=== PATIENT | male | born 1935 | race Caucasian/White ===

== ENCOUNTER 2017-11-02 12:22 | Inpatient (IN) | payer MEDICARE, BC ==
[~2017-11-02] VITALS: Ht 188 cm; Wt 86.2 kg
[2017-11-02 15:28] VITALS: BP 163/99
[2017-11-02] MEDS ORDERED: ONDANSETRON 2MG/ML, 2ML IVPush PRN (17:00)
[2017-11-02] MEDS ORDERED: GUAIFENESIN/DM 200-20MG, 10ML UDC PO PRN (17:00)
[2017-11-02] MEDS ORDERED: DOCUSATE 100 MG CAPSULE PO PRN (17:00)
[2017-11-02] MEDS ORDERED: ACETAMINOPHEN 325 MG TABLET PO PRN (17:00)
[2017-11-02] MEDS ORDERED: PLEASE ENTER ALLERGIES MC SCH (17:00)
[2017-11-02] MEDS ORDERED: ALBU90AE INH (17:03)
[2017-11-02] MEDS ORDERED: FURO80TA3 PO (17:03)
[2017-11-02] MEDS ORDERED: POTA20TA14 PO (17:03)
[2017-11-02] MEDS ORDERED: AZEL137S4 NAS (17:03)
[2017-11-02] MEDS ORDERED: LORA10TA3 PO (17:03)
[2017-11-02] MEDS ORDERED: DIGO250T86 PO (17:03)
[2017-11-02] MEDS ORDERED: ESOM40CA PO (17:03)
[2017-11-02] MEDS ORDERED: FINA5TAB4 PO (17:03)
[2017-11-02] MEDS ORDERED: FLUT50DI NAS (17:03)
[2017-11-02] MEDS ORDERED: ASPI-650 PO (17:03)
[2017-11-02] MEDS ORDERED: GEMF600T3 PO (17:03)
[2017-11-02] MEDS ORDERED: LISI5TAB7 PO (17:03)
[2017-11-02] MEDS ORDERED: METO-93 PO (17:03)
[2017-11-02] MEDS ORDERED: CARV3.122 PO (17:03)
[2017-11-02] MEDS ORDERED: METO-95 PO (17:03)
[2017-11-02] MEDS ORDERED: MULT-717 PO (17:03)
[2017-11-02] MEDS ORDERED: CELE-47 PO (17:03)
[2017-11-02] MEDS ORDERED: METOPROLOL TARTRATE 25 MG TABLET PO SCH (18:00)
[2017-11-02 18:17] LABS: ANION GAP 9 mmol/L (5-15); CALCIUM 8.8 mg/dL (8.5-10.1); CHLORIDE 102 mmol/L (98-107)
[2017-11-02] MEDS: FUROSEMIDE 40 MG/4 ML IV SCH (18:19)
[2017-11-02] MEDS: CARVEDILOL 3.125 MG TABLET PO SCH (18:19)
[2017-11-02 18:21] LABS: TROPONIN I 0.078 ng/mL (0.000-0.045)
[2017-11-02 19:22] LABS: MD YES; MEAN CORPUSCULAR HEMOGLOBIN 29.6 pg (27.5-34.5); MEAN CORPUSCULAR HGB CONC 33.3 g/dL (33.2-36.2); MEAN CORPUSCULAR VOLUME 88.9 fL (81-97); MEAN PLATELET VOLUME 9.8 fL (7.4-10.4); PLATELET COUNT 239 x10^3/uL (130-400); RED BLOOD COUNT 4.82 x10^6/uL (4.38-5.82); RED CELL DISTRIBUTION WIDTH 17.7 % (9.4-14.8)
[2017-11-02 19:30] VITALS: BP_SYST 150; BP_SYST 152; BP_DIAS 101
[2017-11-02 19:50] LABS: LYMPH#(MANUAL) 0.69 x10^3/uL (1-3.4); LYMPHS% (MANUAL) 10 % (22-44); MONOS#(MANUAL) 0.41 x10^3/uL (0.3-2.7); MONOS% (MANUAL) 6 % (2-9); SEGS% (MANUAL) 84 % (42-75)
[2017-11-02 19:52] LABS: <PLATELET ESTIMATE> ADEQUATE; ANISOCYTOSIS 1+; LARGE PLATELETS 1+; POLYCHROMASIA 1+
[2017-11-02 20:52] VITALS: BP 145/87
[2017-11-02] MEDS: GEMFIBROZIL 600 MG TABLET PO SCH (20:53)
[2017-11-02] MEDS: POTASSIUM CHLORIDE 10 MEQ TABLET.ER PO SCH (20:53)
[2017-11-02] MEDS: ENOXAPARIN 40 MG/0.4 ML SQ SCH (20:56)
[2017-11-02] MEDS: FLUTICASONE NASAL SPRAY 16GM NAS SCH (21:50)
[2017-11-02 23:20] LABS: TROPONIN I 0.086 ng/mL (0.000-0.045)
[2017-11-03 00:33] VITALS: BP 133/85
[2017-11-03 05:30] LABS: BASOPHILS # (AUTO) 0.01 x10^3/uL (0-0.1); BASOPHILS % (AUTO) 0 % (0-1); EOSINOPHILS # (AUTO) 0.01 x10^3/uL (0-0.4); EOSINOPHILS % (AUTO) 0 % (1-7); LYMPHOCYTES # (AUTO) 0.62 x10^3/uL (1-3.4); LYMPHOCYTES % (AUTO) 8 % (22-44); MD NO; MEAN CORPUSCULAR HEMOGLOBIN 28.6 pg (27.5-34.5); MEAN CORPUSCULAR HGB CONC 32.2 g/dL (33.2-36.2); MEAN CORPUSCULAR VOLUME 88.6 fL (81-97); MEAN PLATELET VOLUME 9.2 fL (7.4-10.4); MONOCYTES # (AUTO) 0.78 x10^3/uL (0.2-0.8); MONOCYTES % (AUTO) 10 % (2-9); NEUTROPHILS % (AUTO) 81 % (42-75); PLATELET COUNT 217 x10^3/uL (130-400); RED BLOOD COUNT 4.65 x10^6/uL (4.38-5.82); RED CELL DISTRIBUTION WIDTH 17.4 % (9.4-14.8)
[2017-11-03 05:44] LABS: ANION GAP 9 mmol/L (5-15); CALCIUM 8.6 mg/dL (8.5-10.1); CHLORIDE 102 mmol/L (98-107)
[2017-11-03 05:59] LABS: CHOL/HDL RATIO 4.1; CHOLESTEROL, TOTAL 120 mg/dL (140-239); CREATININE 0.83 mg/dL (0.7-1.3); HDL CHOL % 24 % (26-37); HDL CHOLESTEROL (DIRECT) 29 mg/dL (40-60); LDL CHOLESTEROL,CALCULATED 59 mg/dL (54-169); TRIGLYCERIDES 162 mg/dL (50-200); VLDL CHOLESTEROL 32 mg/dL (0-25)
[2017-11-03] MEDS: ASPIRIN 81 MG TABLET EC PO SCH (06:25)
[2017-11-03] MEDS: CARVEDILOL 3.125 MG TABLET PO SCH (06:25)
[2017-11-03] MEDS ORDERED: POTASSIUM CHLORIDE 10 MEQ TABLET.ER PO SCH (08:00)
[2017-11-03] MEDS ORDERED: MAGNESIUM SULFATE PMX 4GM/100M 100 ML IV ONE (08:00)
[2017-11-03 08:23] LABS: TROPONIN I 0.079 ng/mL (0.000-0.045)
[2017-11-03] MEDS: POTASSIUM CHLORIDE 10 MEQ TABLET.ER PO SCH (10:14)
[2017-11-03] MEDS: POTASSIUM CHLORIDE 20 MEQ TAB.ER.PRT PO SCH ×3 (10:14→17:20)
[2017-11-03] MEDS: OXYcodone IR 5MG TABLET PO PRN (10:14)
[2017-11-03] MEDS: TAMSULOSIN 0.4 MG CAP.ER.24H PO SCH (10:14)
[2017-11-03] MEDS: LISINOPRIL 10 MG TABLET PO SCH (10:15)
[2017-11-03] MEDS: GEMFIBROZIL 600 MG TABLET PO SCH ×2 (10:15→21:05)
[2017-11-03] MEDS: FINASTERIDE 5 MG TABLET PO SCH (10:15)
[2017-11-03] MEDS: PANTOPROZOLE 40MG TABLET PO SCH (10:15)
[2017-11-03] MEDS: FUROSEMIDE 40 MG/4 ML IV SCH ×2 (10:16→17:20)
[2017-11-03] MEDS: LORATADINE 10 MG TABLET PO SCH (10:16)
[2017-11-03 10:31] VITALS: BP 158/83
[2017-11-03 14:58] VITALS: BP 127/84
[2017-11-03] MEDS: CARVEDILOL 6.25 MG TABLET PO SCH (17:20)
[2017-11-03 18:37] VITALS: BP 112/66
[2017-11-03] MEDS: ENOXAPARIN 40 MG/0.4 ML SQ SCH (21:06)
[2017-11-03] MEDS: FLUTICASONE NASAL SPRAY 16GM NAS SCH (21:06)
[2017-11-04 01:06] VITALS: BP 135/78
[2017-11-04 05:21] LABS: ALANINE AMINOTRANSFERASE 12 U/L (12-78); ANION GAP 8 mmol/L (5-15); CALCIUM 8.6 mg/dL (8.5-10.1); CHLORIDE 103 mmol/L (98-107); CREATININE 0.95 mg/dL (0.7-1.3)
[2017-11-04 05:23] LABS: ALKALINE PHOSPHATASE 77 U/L (45-117); BILIRUBIN,TOTAL 0.8 mg/dL (0.2-1.0); TOTAL PROTEIN 6.6 g/dL (6.4-8.2)
[2017-11-04] MEDS: CARVEDILOL 6.25 MG TABLET PO SCH ×2 (05:23→18:02)
[2017-11-04] MEDS: ASPIRIN 81 MG TABLET EC PO SCH (05:23)
[2017-11-04 06:55] VITALS: BP 128/79
[2017-11-04] MEDS: POTASSIUM CHLORIDE 10 MEQ TABLET.ER PO SCH (07:27)
[2017-11-04] MEDS: LORATADINE 10 MG TABLET PO SCH (07:27)
[2017-11-04] MEDS: LISINOPRIL 10 MG TABLET PO SCH (07:27)
[2017-11-04] MEDS: TAMSULOSIN 0.4 MG CAP.ER.24H PO SCH (07:27)
[2017-11-04] MEDS: PANTOPROZOLE 40MG TABLET PO SCH (07:27)
[2017-11-04] MEDS: GEMFIBROZIL 600 MG TABLET PO SCH ×2 (07:28→20:49)
[2017-11-04] MEDS: FINASTERIDE 5 MG TABLET PO SCH (07:28)
[2017-11-04] MEDS: FUROSEMIDE 40 MG/4 ML IV SCH (07:28)
[2017-11-04] MEDS: OXYcodone IR 5MG TABLET PO PRN (07:30)
[2017-11-04] MEDS ORDERED: CARV3.122 PO (11:57)
[2017-11-04] MEDS ORDERED: DIGO250T86 PO (12:03)
[2017-11-04 12:52] VITALS: BP 106/74
[2017-11-04 14:27] VITALS: BP 121/89
[2017-11-04 18:39] VITALS: BP 128/85
[2017-11-04] MEDS: FLUTICASONE NASAL SPRAY 16GM NAS SCH (20:49)
[2017-11-04] MEDS: ENOXAPARIN 40 MG/0.4 ML SQ SCH (20:50)
[2017-11-05 02:59] VITALS: BP 117/75
[2017-11-05 05:07] LABS: BASOPHILS # (AUTO) 0.02 x10^3/uL (0-0.1); BASOPHILS % (AUTO) 0 % (0-1); EOSINOPHILS # (AUTO) 0.03 x10^3/uL (0-0.4); EOSINOPHILS % (AUTO) 0 % (1-7); LYMPHOCYTES # (AUTO) 0.79 x10^3/uL (1-3.4); LYMPHOCYTES % (AUTO) 10 % (22-44); MD NO; MEAN CORPUSCULAR HEMOGLOBIN 28.9 pg (27.5-34.5); MEAN CORPUSCULAR VOLUME 90.2 fL (81-97); MEAN PLATELET VOLUME 9.5 fL (7.4-10.4); MONOCYTES # (AUTO) 0.93 x10^3/uL (0.2-0.8); MONOCYTES % (AUTO) 12 % (2-9); NEUTROPHILS % (AUTO) 78 % (42-75); PLATELET COUNT 226 x10^3/uL (130-400); RED BLOOD COUNT 4.72 x10^6/uL (4.38-5.82); RED CELL DISTRIBUTION WIDTH 18.2 % (9.4-14.8)
[2017-11-05 05:12] LABS: ALBUMIN 2.8 g/dL (3.4-5.0); ANION GAP 10 mmol/L (5-15); CALCIUM 8.8 mg/dL (8.5-10.1); CHLORIDE 102 mmol/L (98-107); CREATININE 1.03 mg/dL (0.7-1.3)
[2017-11-05] MEDS: CARVEDILOL 6.25 MG TABLET PO SCH (06:09)
[2017-11-05] MEDS: ASPIRIN 81 MG TABLET EC PO SCH (06:09)
[2017-11-05] MEDS: PANTOPROZOLE 40MG TABLET PO SCH (08:23)
[2017-11-05] MEDS: FINASTERIDE 5 MG TABLET PO SCH (09:00)
[2017-11-05] MEDS ORDERED: FUROSEMIDE 80 MG TABLET PO SCH (09:00)
[2017-11-05 09:09] VITALS: BP 101/65
[2017-11-05] MEDS: TAMSULOSIN 0.4 MG CAP.ER.24H PO SCH (09:59)
[2017-11-05] MEDS: LISINOPRIL 10 MG TABLET PO SCH (09:59)
[2017-11-05] MEDS: GEMFIBROZIL 600 MG TABLET PO SCH (09:59)
[2017-11-05] MEDS: POTASSIUM CHLORIDE 10 MEQ TABLET.ER PO SCH (09:59)
[2017-11-05] MEDS: LORATADINE 10 MG TABLET PO SCH (10:00)
== END 2017-11-05 15:08 | disposition home or self-care (01) | DRG 292 ==
LOC: 5SO 15:24
PROVIDERS: ADMIT Hospitalist; ATTEND Hospitalist
DX: I11.0 Hypertensive heart disease with heart failure (principal); D68.69 Other thrombophilia; I48.91 Unspecified atrial fibrillation; I50.23 Acute on chronic systolic (congestive) heart failure; E83.42 Hypomagnesemia; E78.5 Hyperlipidemia, unspecified; E87.6 Hypokalemia; I25.10 Atherosclerotic heart disease of native coronary artery without angina pectoris; N40.0 Benign prostatic hyperplasia without lower urinary tract symptoms; K21.9 Gastro-esophageal reflux disease without esophagitis; Z96.653 Presence of artificial knee joint, bilateral; M19.90 Unspecified osteoarthritis, unspecified site; R09.02 Hypoxemia; Z79.899 Other long term (current) drug therapy; Z79.82 Long term (current) use of aspirin; Z80.0 Family history of malignant neoplasm of digestive organs; Z85.72 Personal history of non-Hodgkin lymphomas; Z87.442 Personal history of urinary calculi; Z87.891 Personal history of nicotine dependence; Z92.21 Personal history of antineoplastic chemotherapy; Z92.3 Personal history of irradiation; Z88.0 Allergy status to penicillin
CPT/HCPCS: 36415; 80048; 80053; 80061; 80162; 82040; 83735; 84100; 84443; 84484; 85025; 93005; 93306; J1650; J1940; J3475

== ENCOUNTER 2018-10-19 15:45 | Inpatient (IN) | payer MEDICARE, BC ==
[~2018-10-19] VITALS: Ht 188 cm; Wt 94.6 kg
[~2018-10-19 15:45] MED LIST: ALBU90AE INH; ASPI-650 PO; AZEL137S4 NAS; CARV3.122 PO; CELE-47 PO; DIGO250T86 PO; ESOM40CA PO; FINA5TAB4 PO; FLUT50DI NAS; FURO80TA3 PO; GEMF600T8 PO; LISI5TAB7 PO; LORA-247 PO; METO-93 PO; METO-95 PO; MULT-717 PO; POTA20TA14 PO
[2018-10-19 19:08] VITALS: BP 159/84
[2018-10-19] MEDS ORDERED: ESOM40SU PO (21:34)
[2018-10-19] MEDS ORDERED: PANT40GR PO (21:44)
[2018-10-19] MEDS ORDERED: TAMS0.4C2 PO (21:45)
[2018-10-19] MEDS ORDERED: CETI5SOL PO (21:48)
[2018-10-19] MEDS ORDERED: MAGN400T50 PO (21:50)
[2018-10-19] MEDS ORDERED: OXYM15SP8 NAS (21:52)
[2018-10-19] MEDS ORDERED: ONDANSETRON ODT 4 MG PO PRN (22:30)
[2018-10-19] MEDS ORDERED: hydrALAzine 20 MG/ML, 1ML IVPush PRN (22:30)
[2018-10-19] MEDS ORDERED: SODIUM CHLORIDE NASAL SPRAY 45ML BOTTLE NAS PRN (23:30)
[2018-10-20 00:05] VITALS: BP 159/94
[2018-10-20 02:22] VITALS: BP 160/91
[2018-10-20 04:20] LABS: BASOPHILS # (AUTO) 0.03 x10^3/uL (0-0.1); BASOPHILS % (AUTO) 0 % (0-1); EOSINOPHILS # (AUTO) 0.03 x10^3/uL (0-0.4); EOSINOPHILS % (AUTO) 0 % (1-7); LYMPHOCYTES # (AUTO) 0.56 x10^3/uL (1-3.4); LYMPHOCYTES % (AUTO) 4 % (22-44); MD NO; MEAN CORPUSCULAR HEMOGLOBIN 28.9 pg (27.5-34.5); MEAN CORPUSCULAR HGB CONC 32.3 g/dL (33.2-36.2); MEAN CORPUSCULAR VOLUME 89.4 fL (81-97); MEAN PLATELET VOLUME 9.4 fL (7.4-10.4); MONOCYTES % (AUTO) 9 % (2-9); NEUTROPHILS # (AUTO) 11.02 x10^3/uL (1.8-6.8); NEUTROPHILS % (AUTO) 87 % (42-75); PLATELET COUNT 258 x10^3/uL (130-400); RED BLOOD COUNT 4.04 x10^6/uL (4.38-5.82); RED CELL DISTRIBUTION WIDTH 16.2 % (9.4-14.8)
[2018-10-20 04:32] LABS: CALCIUM 8.6 mg/dL (8.5-10.1); CHLORIDE 102 mmol/L (98-107)
[2018-10-20 04:38] LABS: ALANINE AMINOTRANSFERASE 12 U/L (12-78); ALBUMIN 2.9 g/dL (3.4-5.0); ALKALINE PHOSPHATASE 82 U/L (45-117); ANION GAP 8 mmol/L (5-15); BILIRUBIN,TOTAL 0.4 mg/dL (0.2-1.0); CREATININE 1.01 mg/dL (0.7-1.3); TOTAL PROTEIN 6.5 g/dL (6.4-8.2)
[2018-10-20 06:58] VITALS: BP 143/94
[2018-10-20] MEDS ORDERED: POTASSIUM CHLORIDE 20 MEQ TAB.ER.PRT PO ONE (10:30)
[2018-10-20] MEDS ORDERED: [UNRECOGNIZED DRUG - REMARK] MC SCH (11:00)
[2018-10-20] MEDS ORDERED: OXYMETAZOLINE NASAL SPRAY 0.05%, 15ML NAS PRN (11:00)
[2018-10-20] MEDS: CARVEDILOL 6.25 MG TABLET PO SCH ×2 (12:18→21:39)
[2018-10-20] MEDS: SODIUM CHLORIDE 0.9% 1,000 ML IV SCH (12:18)
[2018-10-20] MEDS: POTASSIUM CHLORIDE 20 MEQ TAB.ER.PRT PO SCH (12:18)
[2018-10-20] MEDS: CETIRIZINE 10 MG TABLET PO SCH (12:18)
[2018-10-20] MEDS: PANTOPRAZOLE GRAN. PKT 40 MG PO SCH ×2 (12:18→21:38)
[2018-10-20] MEDS: LISINOPRIL 5 MG TABLET PO SCH (12:18)
[2018-10-20] MEDS: FUROSEMIDE 80 MG TABLET PO SCH (12:19)
[2018-10-20] MEDS: ENOXAPARIN 100 MG/ML SQ SCH ×2 (12:19→21:38)
[2018-10-20] MEDS: MAGNESIUM OXIDE 400 MG TABLET PO SCH ×3 (12:19→21:39)
[2018-10-20] MEDS ORDERED: OMNIPAQUE 350 MG/ML, 100ML BOTTLE ONE (13:35)
[2018-10-20 14:08] VITALS: BP 146/91
[2018-10-20] MEDS: DIGOXIN 0.25 MG TABLET PO SCH (15:07)
[2018-10-20 18:57] VITALS: BP 150/89
[2018-10-21] MEDS: SODIUM CHLORIDE 0.9% 1,000 ML IV SCH ×2 (00:20→16:06)
[2018-10-21 00:34] VITALS: BP 127/74
[2018-10-21 04:46] LABS: ALBUMIN 2.9 g/dL (3.4-5.0); ANION GAP 7 mmol/L (5-15); CALCIUM 8.5 mg/dL (8.5-10.1); CHLORIDE 102 mmol/L (98-107)
[2018-10-21 05:04] LABS: CREATININE 1.12 mg/dL (0.7-1.3)
[2018-10-21 08:00] VITALS: BP 127/78
[2018-10-21] MEDS: POTASSIUM CHLORIDE 20 MEQ TAB.ER.PRT PO SCH (08:09)
[2018-10-21] MEDS: PANTOPRAZOLE GRAN. PKT 40 MG PO SCH ×2 (08:09→21:24)
[2018-10-21] MEDS: CARVEDILOL 6.25 MG TABLET PO SCH ×2 (08:09→21:23)
[2018-10-21] MEDS: FINASTERIDE 5 MG TABLET PO SCH (08:10)
[2018-10-21] MEDS: DIGOXIN 0.25 MG TABLET PO SCH (08:10)
[2018-10-21] MEDS: FUROSEMIDE 80 MG TABLET PO SCH (08:10)
[2018-10-21] MEDS: LISINOPRIL 5 MG TABLET PO SCH (08:10)
[2018-10-21] MEDS: MAGNESIUM OXIDE 400 MG TABLET PO SCH ×3 (08:10→21:23)
[2018-10-21] MEDS: CETIRIZINE 10 MG TABLET PO SCH (08:11)
[2018-10-21] MEDS: ENOXAPARIN 100 MG/ML SQ SCH ×2 (11:14→22:49)
[2018-10-21 13:00] VITALS: BP 136/89
[2018-10-21 17:49] LABS: CLOSTRIDIUM DIFFICILE ANTIGEN NEGATIVE; CLOSTRIDIUM DIFFICILE TOXIN NEGATIVE (Negative)
[2018-10-21 19:14] VITALS: BP 126/77
[2018-10-22 00:35] VITALS: BP 121/70
[2018-10-22] MEDS: SODIUM CHLORIDE 0.9% 1,000 ML IV SCH ×2 (06:44→20:32)
[2018-10-22] MEDS: PANTOPRAZOLE GRAN. PKT 40 MG PO SCH ×2 (08:00→20:21)
[2018-10-22] MEDS ORDERED: PROPOFOL 10 MG/ML, 20ML ONE (08:45)
[2018-10-22] MEDS ORDERED: FENTANYL PF 100 MCG/2ML IV PRN (09:00)
[2018-10-22] MEDS ORDERED: PROMETHAZINE 25 MG/ML, 1ML IV PRN (09:00)
[2018-10-22] MEDS ORDERED: OXYcodone 5 MG/5 ML ORAL.SOL UDC PO PRN (09:00)
[2018-10-22] MEDS ORDERED: ALBUTEROL SULFATE 2.5 MG/3 ML NPPB PRN (09:00)
[2018-10-22] MEDS ORDERED: HYDROmorphone 2 MG/ML, 1ML IVPush PRN (09:00)
[2018-10-22] MEDS ORDERED: HALOPERIDOL 5 MG/ML IV PRN (09:00)
[2018-10-22] MEDS ORDERED: hydrALAzine 20 MG/ML, 1ML IV PRN (09:00)
[2018-10-22] MEDS ORDERED: LABETALOL 5MG/ML, 20ML IV PRN (09:00)
[2018-10-22 09:50] VITALS: BP 133/73
[2018-10-22] MEDS: FUROSEMIDE 80 MG TABLET PO SCH (10:23)
[2018-10-22] MEDS: FINASTERIDE 5 MG TABLET PO SCH (10:23)
[2018-10-22] MEDS: DIGOXIN 0.25 MG TABLET PO SCH (10:24)
[2018-10-22] MEDS: MAGNESIUM OXIDE 400 MG TABLET PO SCH ×3 (10:24→20:21)
[2018-10-22] MEDS: LISINOPRIL 5 MG TABLET PO SCH (10:24)
[2018-10-22] MEDS: CETIRIZINE 10 MG TABLET PO SCH (10:24)
[2018-10-22] MEDS: POTASSIUM CHLORIDE 20 MEQ TAB.ER.PRT PO SCH (10:24)
[2018-10-22] MEDS: CARVEDILOL 6.25 MG TABLET PO SCH ×2 (10:24→20:22)
[2018-10-22] MEDS: ENOXAPARIN 100 MG/ML SQ SCH ×2 (10:25→22:08)
[2018-10-22 13:55] VITALS: BP 116/70
[2018-10-22 18:50] VITALS: BP 142/82
[2018-10-22 22:10] VITALS: BP 119/71
[2018-10-23 01:48] VITALS: BP 123/72
[2018-10-23 06:50] VITALS: BP 128/74
[2018-10-23] MEDS: FINASTERIDE 5 MG TABLET PO SCH (08:50)
[2018-10-23] MEDS: CETIRIZINE 10 MG TABLET PO SCH (08:50)
[2018-10-23] MEDS: POTASSIUM CHLORIDE 20 MEQ TAB.ER.PRT PO SCH (08:50)
[2018-10-23] MEDS: CARVEDILOL 6.25 MG TABLET PO SCH ×2 (08:50→20:04)
[2018-10-23] MEDS: SODIUM CHLORIDE 0.9% 1,000 ML IV SCH ×2 (08:50→22:06)
[2018-10-23] MEDS: PANTOPRAZOLE GRAN. PKT 40 MG PO SCH ×2 (08:50→20:04)
[2018-10-23] MEDS: MAGNESIUM OXIDE 400 MG TABLET PO SCH ×3 (08:51→20:03)
[2018-10-23] MEDS: FUROSEMIDE 80 MG TABLET PO SCH (08:51)
[2018-10-23] MEDS: LISINOPRIL 5 MG TABLET PO SCH (08:51)
[2018-10-23] MEDS: DIGOXIN 0.25 MG TABLET PO SCH (08:51)
[2018-10-23] MEDS: ENOXAPARIN 100 MG/ML SQ SCH ×2 (11:06→22:06)
[2018-10-23 13:30] VITALS: BP 110/66
[2018-10-23 18:47] VITALS: BP 145/75
[2018-10-24 01:25] VITALS: BP 135/75
[2018-10-24 06:47] LABS: BASOPHILS # (AUTO) 0.02 x10^3/uL (0-0.1); BASOPHILS % (AUTO) 0 % (0-1); EOSINOPHILS # (AUTO) 0.02 x10^3/uL (0-0.4); EOSINOPHILS % (AUTO) 0 % (1-7); LYMPHOCYTES # (AUTO) 0.61 x10^3/uL (1-3.4); LYMPHOCYTES % (AUTO) 8 % (22-44); MD NO; MEAN CORPUSCULAR HEMOGLOBIN 27.9 pg (27.5-34.5); MEAN CORPUSCULAR VOLUME 89.9 fL (81-97); MONOCYTES # (AUTO) 0.54 x10^3/uL (0.2-0.8); MONOCYTES % (AUTO) 7 % (2-9); NEUTROPHILS # (AUTO) 6.47 x10^3/uL (1.8-6.8); NEUTROPHILS % (AUTO) 84 % (42-75); PLATELET COUNT 213 x10^3/uL (130-400); RED BLOOD COUNT 3.62 x10^6/uL (4.38-5.82); RED CELL DISTRIBUTION WIDTH 16.5 % (9.4-14.8)
[2018-10-24 06:52] VITALS: BP 143/93
[2018-10-24 10:10] VITALS: BP 130/79
[2018-10-24] MEDS: POTASSIUM CHLORIDE 20 MEQ TAB.ER.PRT PO SCH (10:11)
[2018-10-24] MEDS: APIXABAN 5 MG TABLET PO SCH ×2 (10:11→20:11)
[2018-10-24] MEDS: DIGOXIN 0.25 MG TABLET PO SCH (10:11)
[2018-10-24] MEDS: CARVEDILOL 6.25 MG TABLET PO SCH ×2 (10:11→20:11)
[2018-10-24] MEDS: FINASTERIDE 5 MG TABLET PO SCH (10:12)
[2018-10-24] MEDS: FUROSEMIDE 80 MG TABLET PO SCH (10:12)
[2018-10-24] MEDS: MAGNESIUM OXIDE 400 MG TABLET PO SCH ×3 (10:12→20:11)
[2018-10-24] MEDS: CETIRIZINE 10 MG TABLET PO SCH (10:12)
[2018-10-24] MEDS: LISINOPRIL 5 MG TABLET PO SCH (10:12)
[2018-10-24] MEDS: PANTOPRAZOLE GRAN. PKT 40 MG PO SCH ×2 (10:12→20:11)
[2018-10-24 13:39] VITALS: BP 105/67
[2018-10-24 19:31] VITALS: BP 132/81
[2018-10-25 01:31] VITALS: BP 147/80
[2018-10-25 07:35] VITALS: BP 157/85
[2018-10-25] MEDS: CETIRIZINE 10 MG TABLET PO SCH (09:00)
[2018-10-25] MEDS: LISINOPRIL 5 MG TABLET PO SCH (09:00)
[2018-10-25] MEDS: FINASTERIDE 5 MG TABLET PO SCH (09:00)
[2018-10-25] MEDS: CARVEDILOL 6.25 MG TABLET PO SCH ×2 (09:00→20:49)
[2018-10-25] MEDS: PANTOPRAZOLE GRAN. PKT 40 MG PO SCH ×2 (09:00→20:49)
[2018-10-25] MEDS: POTASSIUM CHLORIDE 20 MEQ TAB.ER.PRT PO SCH (09:00)
[2018-10-25] MEDS: MAGNESIUM OXIDE 400 MG TABLET PO SCH ×3 (09:00→20:49)
[2018-10-25] MEDS: DIGOXIN 0.25 MG TABLET PO SCH (09:00)
[2018-10-25] MEDS: FUROSEMIDE 80 MG TABLET PO SCH (09:00)
[2018-10-25] MEDS: APIXABAN 5 MG TABLET PO SCH ×2 (09:00→20:49)
[2018-10-25] MEDS ORDERED: METHYL SALICYLATE/MENTHOL CRM 85GM TP SCH (11:00)
[2018-10-25] MEDS: METHYL SALICYLATE/MENTHOL CRM 85GM TP SCH ×3 (11:10→20:52)
[2018-10-25 12:58] VITALS: BP 146/94
[2018-10-25 19:00] VITALS: BP 156/90
[2018-10-26 00:28] VITALS: BP 148/89
[2018-10-26] MEDS: METHYL SALICYLATE/MENTHOL CRM 85GM TP SCH ×2 (05:43→11:05)
[2018-10-26 06:30] VITALS: BP 161/91
[2018-10-26] MEDS: LISINOPRIL 5 MG TABLET PO SCH (08:32)
[2018-10-26] MEDS: APIXABAN 5 MG TABLET PO SCH (08:32)
[2018-10-26] MEDS: FINASTERIDE 5 MG TABLET PO SCH (08:33)
[2018-10-26] MEDS: PANTOPRAZOLE GRAN. PKT 40 MG PO SCH (09:00)
[2018-10-26] MEDS: CETIRIZINE 10 MG TABLET PO SCH (09:00)
[2018-10-26] MEDS: FUROSEMIDE 80 MG TABLET PO SCH (09:00)
[2018-10-26] MEDS: POTASSIUM CHLORIDE 20 MEQ TAB.ER.PRT PO SCH (09:00)
[2018-10-26] MEDS: CARVEDILOL 6.25 MG TABLET PO SCH (09:00)
[2018-10-26] MEDS: MAGNESIUM OXIDE 400 MG TABLET PO SCH (09:00)
[2018-10-26] MEDS: DIGOXIN 0.25 MG TABLET PO SCH (09:00)
[2018-10-26 13:42] VITALS: BP 153/104
== END 2018-10-26 15:10 | disposition home health service (06) | DRG 840 ==
LOC: 3NW 19:00
PROVIDERS: ADMIT Internal Medicine; ATTEND Hospitalist
PROC: 0DB68ZX Excision of Stomach, Via Natural or Artificial Opening Endoscopic, Diagnostic (ICD-10-PCS; principal; 2018-10-22 08:00)
DX: C83.30 Diffuse large B-cell lymphoma, unspecified site (principal); E43 Unspecified severe protein-calorie malnutrition; I26.99 Other pulmonary embolism without acute cor pulmonale; I42.9 Cardiomyopathy, unspecified; I50.22 Chronic systolic (congestive) heart failure; Q61.3 Polycystic kidney, unspecified; I11.0 Hypertensive heart disease with heart failure; Z80.0 Family history of malignant neoplasm of digestive organs; I48.0 Paroxysmal atrial fibrillation; I48.2 Chronic atrial fibrillation; K21.9 Gastro-esophageal reflux disease without esophagitis; N40.0 Benign prostatic hyperplasia without lower urinary tract symptoms; Z79.01 Long term (current) use of anticoagulants; Z79.82 Long term (current) use of aspirin; Z79.899 Other long term (current) drug therapy; Z86.711 Personal history of pulmonary embolism; Z92.21 Personal history of antineoplastic chemotherapy; Z92.3 Personal history of irradiation; Z96.653 Presence of artificial knee joint, bilateral; Z51.5 Encounter for palliative care; Z68.26 Body mass index [BMI] 26.0-26.9, adult; Z88.0 Allergy status to penicillin
CPT/HCPCS: 36415; 74177; 80048; 80053; 80162; 82040; 83735; 84100; 85025; 87324; 88305; 88341; 88342; 88360; 93005; G0378; J1650; J2704; Q0162; Q9967; J7030